=== PATIENT | male | born 1945 | race Caucasian/White ===

== ENCOUNTER 2019-05-06 15:14 | Emergency (ER) | payer MEDICARE, OTHER ==
[~2019-05-06] VITALS: Ht 172.7 cm; Wt 68.9 kg
--- NOTE | 2019-05-06 15:20 | NUR ---
called for triage not in the waiting room.
[2019-05-06 15:51] LABS: BASOPHILS % (AUTO) 0.6 % (0.0-2.0); EOSINOPHILS % (AUTO) 1.3 % (0.0-6.0); HEMATOCRIT 49 % (39-51); HEMOGLOBIN 16.3 g/dL (13.5-17.5); LYMPHOCYTES # (AUTO) 1.5 /CMM (0.8-4.8); LYMPHOCYTES % (AUTO) 23.1 % (20.0-44.0); MEAN CORPUSCULAR HGB CONC 33 g/dl (31.0-36.0); MEAN CORPUSCULAR VOLUME 93 fL (80-96); MONOCYTES # (AUTO) 0.6 /CMM (0.1-1.30); MONOCYTES % (AUTO) 9.2 % (2.0-12.0); NEUTROPHILS # (AUTO) 4.2 /CMM (1.8-8.9); NEUTROPHILS % (AUTO) 65.8 % (43.0-81.0); PLATELET COUNT (AUTO) 257 /CMM (150-450); RED BLOOD CELL COUNT(AUTO) 5.22 MIL/uL (4.5-6.0); WHITE BLOOD COUNT (AUTO) 6.5 K/uL (4.3-11.0)
--- NOTE | 2019-05-06 15:51 | NUR ---
L sided chest wall discomfort, sob that started 2 nights ago. PT AAOX4, VSS. RR EVEN & UNLABORED. DENIES DIZZINESS, N/V, WEAKNESS @ THIS TIME. PLACED ON GRADUATE INTERN. PT SEEN & EVAL'D BY DR. ISAACS. WILL CONT TO MONITOR.
[2019-05-06] MEDS ORDERED: ALBUTEROL FS 2.5 MG/3 ML VIAL.NEB ONE (15:53)
[2019-05-06] MEDS ORDERED: IPRATROPIUM NEB FS 0.5 MG/2.5 ML AMPUL.NEB ONE (15:53)
[2019-05-06] MEDS ORDERED: predniSONE 20 MG TABLET PO ONE (16:00)
[2019-05-06] MEDS ORDERED: IPRATROPIUM NEB FS 0.5 MG/2.5 ML AMPUL.NEB NEB ONE (16:00)
[2019-05-06] MEDS ORDERED: ALBUTEROL FS 2.5 MG/3 ML VIAL.NEB NEB ONE (16:00)
[2019-05-06] MEDS ORDERED: IOHEXOL-300 100 ML VIAL IV ONE ×2 (16:11→16:17)
[2019-05-06 16:12] LABS: B-TYPE NATRIURETIC PEPTIDE 38 PG/ML (0-125); CALCIUM, SERUM 9.2 mg/dL (8.5-10.1); CARBON DIOXIDE 29 mmol/L (21-32); CHLORIDE 101 mmol/L (98-107); CREATININE 0.9 mg/dL (0.6-1.3); GLUCOSE 99 mg/dL (74-106); SODIUM SERUM 137 mmol/L (136-145); UREA NITROGEN, BLOOD 21 mg/dL (7-18)
[2019-05-06] MEDS ORDERED: CT SWABBABLE VALVE TRANS SET 1 EA INFUS.SET MC ONE ×2 (16:12→16:17)
[2019-05-06] MEDS ORDERED: IV NS 0.9% 0 ML IV ONE (16:12)
[2019-05-06] MEDS ORDERED: IV NS 0.9% 250 ML IV ONE (16:17)
--- NOTE | 2019-05-06 16:21 | NUR ---
PT TO RADIOLOGY DEPT VIA [facility].
[2019-05-06] MEDS ORDERED: predniSONE 20 MG TABLET ONE (16:38)
--- NOTE | 2019-05-06 16:44 | NUR ---
PT REFUSED PREDNISONE, ERMD AWARE.
[2019-05-06 17:29] VITALS: BP 130/83
--- NOTE | 2019-05-06 17:29 | NUR ---
Patient discharged to home in stable condition. Written and verbal after care instructions given. Patient verbalizes understanding of instruction. IV removed. Catheter intact and site benign. Pressure and 4x4 applied to site. No bleeding noted.
== END 2019-05-06 17:30 | disposition home or self-care (01) ==
LOC: ER 15:14
DX: J44.9 Chronic obstructive pulmonary disease, unspecified (principal); F17.210 Nicotine dependence, cigarettes, uncomplicated; R00.1 Bradycardia, unspecified
CPT/HCPCS: 36415; 71045; 71260; 80048; 83880; 84484; 85025; 93005; 94640; 99284; J7050; J7512; Q9967